=== PATIENT | male | born 1935 | race Two or more races ===

== ENCOUNTER 2018-07-14 15:58 | Inpatient (IN) | payer MEDICARE, MEDICAID ==
[~2018-07-14] VITALS: Ht 190.5 cm; Wt 70.3 kg
--- NOTE | 2018-07-14 16:15 | NUR ---
GPS/RN PATIENT ADMITTED ON A 5150 HOLD UNDER THE CARE OF DR DYER AND DR SORENSON. BOTH DR'S NOTIFIED OF NEW ADMISSION. AWAITING CALL BACK FROM DR SORENSON TO RECONCILE MEDS. PER HOLD PATIENT WAS VOICING SI DUE TO HIS SOCIAL SECURITY CHECK BEING SHORT, AND NOT BEING ABLE TO PAY HIS RENT. UPON FACE FACE ASSESSMENT, PATIENT IS ALERT X 2-3, VERBALLY RESPONSIVE,UNKEMPT, AMBULATORY AND CONTINENT. PATIENT DENIES ANY SI/HI/AVH AT THIS TIME. PATIENT IS CALM, COOPERATIVE, WITHDRAWN WITH DEPRESSED MOOD. BELONGINGS COLLECTED MEDICATIONS RECONCILED BY MED RECON NURSE. PATIENT HAS UPPER AND LOWER DENTURES WHICH ARE IN HIS MOUTH. WILL CONTINUE TO MONITOR Q 15 MIN FOR SAFETY AND BEHAVIOR.
[2018-07-14] MEDS ORDERED: MAGNESIUM HYDROXIDE 30 ML UDC PO PRN (16:30)
[2018-07-14] MEDS ORDERED: ACETAMINOPHEN 325 MG TABLET PO PRN (16:30)
[2018-07-14] MEDS ORDERED: LORAZEPAM 0.5 MG TABLET PO PRN (16:30)
[2018-07-14] MEDS ORDERED: TIMO5DRO31 EACHEYE (16:34)
[2018-07-14] MEDS: MAG HYDROX/AL HYDROX/SIMETH 30 ML UDC PO PRN ×2 (16:58→21:25)
[2018-07-14 17:09] VITALS: BP 153/64
[2018-07-14 20:08] VITALS: BP 119/62
--- NOTE | 2018-07-14 22:00 | NUR ---
GPS RN: Found in the room vomiting clear liquid. Complained of stomach acid. PRN Maalox administered. Patient was in bed resting upon reassessment 30 min after Addendum: 07/15/18 at 0615 by KEVEN LEGRE RN Amended: Links added.
[2018-07-15 06:44] LABS: ALANINE AMINOTRANSFERASE 12 U/L (12-78); ALBUMIN 3.1 g/dL (3.4-5.0); ALKALINE PHOSPHATASE 60 U/L (46-116); ASPARTATE AMINOTRANSFERASE 13 U/L (15-37); BILIRUBIN,TOTAL 0.2 mg/dL (0.2-1.0); CALCIUM, SERUM 8.6 mg/dL (8.5-10.1); CARBON DIOXIDE 29 mmol/L (21-32); CHLORIDE 105 mmol/L (98-107); CREATININE 1.4 mg/dL (0.6-1.3); GLUCOSE 82 mg/dL (74-106); POTASSIUM 4.4 mmol/L (3.5-5.1); SODIUM SERUM 139 mmol/L (136-145); TOTAL PROTEIN, SERUM 6.2 g/dL (6.4-8.2); UREA NITROGEN, BLOOD 23 mg/dL (7-18)
[2018-07-15 06:47] LABS: CHOLESTEROL 189 mg/dL (<200); HDL CHOLESTEROL 49 mg/dL (40-60); LDL 128 mg/dL (0-99); TRIGLYCERIDES 95 mg/dL (30-150)
[2018-07-15 08:00] VITALS: BP 150/61
[2018-07-15] MEDS: ESCITALOPRAM OXALATE (10 MG) 10 MG TABLET PO SCH (10:44)
--- NOTE | 2018-07-15 12:20 | NUR ---
INITIAL DISCHARGE PLAN: Patient wishes to be discharged back to room and board to [address] [place] [address], [id number] . SW will help form a safe and proper discharge in collaboration with pt and MD.
[2018-07-15 16:00] VITALS: BP 127/71
[2018-07-15] MEDS: MAG HYDROX/AL HYDROX/SIMETH 30 ML UDC PO PRN (19:51)
--- NOTE | 2018-07-15 19:52 | NUR ---
C/O GASTRIC UPSET, MAALOX 30 ML PO GIVEN.
[2018-07-15 20:00] VITALS: BP 156/69
[2018-07-15] MEDS: TEMAZEPAM 7.5 MG CAPSULE PO PRN (21:33)
[2018-07-16 08:00] VITALS: BP 139/62
[2018-07-16] MEDS: ESCITALOPRAM OXALATE (10 MG) 10 MG TABLET PO SCH (08:24)
[2018-07-16 16:00] VITALS: BP 150/62
[2018-07-16] MEDS: MAG HYDROX/AL HYDROX/SIMETH 30 ML UDC PO PRN (19:47)
--- NOTE | 2018-07-16 19:48 | NUR ---
C/O GASTRIC UPSET, MAALOX 30 ML PO GIVEN.
[2018-07-16 20:00] VITALS: BP 139/69
[2018-07-16] MEDS: TEMAZEPAM 7.5 MG CAPSULE PO PRN (20:35)
--- NOTE | 2018-07-16 20:35 | NUR ---
TEMAZEPAM 7.5 MG CAP 1 PO GIVEN FOR SLEEP.
[2018-07-17 08:00] VITALS: BP 113/60
[2018-07-17] MEDS: ESCITALOPRAM OXALATE (10 MG) 10 MG TABLET PO SCH (08:57)
[2018-07-17] MEDS: MAG HYDROX/AL HYDROX/SIMETH 30 ML UDC PO PRN ×2 (15:07→20:33)
[2018-07-17 16:00] VITALS: BP 144/81
[2018-07-17 20:00] VITALS: BP 139/67
[2018-07-17] MEDS: TEMAZEPAM 7.5 MG CAPSULE PO PRN (20:32)
--- NOTE | 2018-07-17 20:33 | NUR ---
MAALOX 30 ML PO GIVEN FOR GASTRIC UPSET
--- NOTE | 2018-07-17 20:34 | NUR ---
TEMAZEPA7.5 MG CAP PO GIVEN FOR SLEEP.
[2018-07-18] MEDS: ESCITALOPRAM OXALATE (10 MG) 10 MG TABLET PO SCH (08:05)
[2018-07-18 09:25] VITALS: BP 136/73
--- NOTE | 2018-07-18 10:43 | NUR ---
GPS/RN PATIENT REFUSED SHOWER, ENCOURAGED X 3, EXPLAINED RISKS AND BENEFITS, WILL CONTINUE TO ENCOURAGE.
[2018-07-18] MEDS: MAG HYDROX/AL HYDROX/SIMETH 30 ML UDC PO PRN ×2 (12:52→19:57)
--- NOTE | 2018-07-18 16:06 | NUR ---
Pts brett Rawls, came to visit pt to collect rent money. Brett was requesting for pt to write her a check. SOO informed brett that due to pts current legal status on psych unit pt was unable to sign any legal monetary document. SOO explained to both pt and lennylorviji that signing legal documents including a blank check to brett was against hospital policy. Brett and pt both understood. Brett, informed SW that pt is able to return home and she would arrange payment after pt is discharged.
[2018-07-18 16:41] VITALS: BP 161/72
[2018-07-18 20:40] VITALS: BP 99/60
[2018-07-19] MEDS: TEMAZEPAM 7.5 MG CAPSULE PO PRN (00:38)
[2018-07-19 08:00] VITALS: BP 113/52
[2018-07-19] MEDS: ESCITALOPRAM OXALATE (10 MG) 10 MG TABLET PO SCH (08:32)
[2018-07-19] MEDS: MAG HYDROX/AL HYDROX/SIMETH 30 ML UDC PO PRN ×2 (11:29→19:36)
[2018-07-19 16:05] VITALS: BP 141/66
--- NOTE | 2018-07-19 19:30 | NUR ---
GPS RN NOTE, RECEIVED PATIENT AWAKE AND IN BED, NO S/S OR COMPLAINTS OF PAIN AT THIS TIME. PATIENT IS DISPLAYING NO S/S OF APPARENT DISTRESS AT THIS TIME. PATIENT BREATHING IS UNLABORED WITH EQUAL RISE AND FALL OF THE CHEST. PATIENT IS ALERT AND ORIENTED X 3 ON ROOM AIR WITH A SPO2 OF 96%. PATIENT IS MED COMPLIANT, CALM, COOPERATIVE, DISORGANIZED, CONFUSED AT TIMES, AND NEEDS REDIRECTION. PATIENT DENIES SUICIDE IDEATIONS AND HOMICIDAL IDEATIONS AT THIS TIME. PATIENT ASSISTED WITH TURNING AND REPOSITIONING Q 2HRS AND PRN FOR COMFORT AND CIRCULATION. PATIENT HAS NO NEEDS AT THIS TIME. PATIENT EDUCATED ON THE USE OF THE CALL CARRILLO. PATIENT BED SIDE RAILS UP X 2 FOR SAFETY, BED IS LOCKED, LOW, AND I WILL CONTINUE TO MONITOR AND MAINTAIN SAFETY Q15 MIN WITH THE HELP OF STAFF.
--- NOTE | 2018-07-19 19:38 | NUR ---
GPS RN NOTE, PATIENT HAS A COMPLAINT OF INDIGESTION AND IS REQUESTING MAALOX AT THIS TIME. PATIENT VITAL SIGNS ARE STABLE. GAVE MAALOX 30 ML PO Q4HR PRN ORDERED. WILL REASSESS FOR INDIGESTION AND I WILL CONTINUE TO MONITOR THIS PATIENT.
[2018-07-19 20:09] VITALS: BP 154/72
[2018-07-20 08:00] VITALS: BP 101/55
[2018-07-20] MEDS: ESCITALOPRAM OXALATE (10 MG) 10 MG TABLET PO SCH (08:28)
[2018-07-20] MEDS: MAG HYDROX/AL HYDROX/SIMETH 30 ML UDC PO PRN ×2 (10:32→19:22)
[2018-07-20 16:00] VITALS: BP 136/61
[2018-07-20 19:53] VITALS: BP 110/74
[2018-07-20] MEDS: TEMAZEPAM 7.5 MG CAPSULE PO PRN (21:46)
[2018-07-21 08:00] VITALS: BP 110/52
[2018-07-21] MEDS: ESCITALOPRAM OXALATE (10 MG) 10 MG TABLET PO SCH (08:51)
--- NOTE | 2018-07-21 09:32 | NUR ---
SOO faxed continuing care packet to [facility] [address] [address] for an after care referral.
--- NOTE | 2018-07-21 09:39 | NUR ---
DR. DYER GAVE AN ORDER TO D/C HOLD AND D/C TODAY AND TO FOLLOW UP WITH PSYCH AND MEDICAL DOCTORS.
[2018-07-21] MEDS: MAG HYDROX/AL HYDROX/SIMETH 30 ML UDC PO PRN (10:53)
--- NOTE | 2018-07-21 10:53 | NUR ---
GPS/RN-NOTES PATIENT REQUESTING MAALOX FOR INDIGESTION. MAALOX 30ML. PRN ORDER. WILL CONT. MONITORING.
--- NOTE | 2018-07-21 12:15 | NUR ---
GPS/RN-NOTES PATIENT DISCHARGE TO HOME TODAY. DR. DUPONT AND NIKKI SCOTT AWARE AND AGREED WITH ORDERS.PATIENT DID NOT VERBALIZE SI/HI,DENIES VISUAL/AUDITORY HALLUCINATIONS AT THE TIME OF DISCHARGE. ALL DISCHARGE MEDICATIONS WAS REVIEWED WITH PATIENT WITH UNDERSTANDING. RX WAS GIVEN TO THE PATIENT AND ADVISED PATIENT TO F/U WITH PRIMARY MD AND PSYCHIATRIST IN A WEEK.PATIENT LEFT THE UNIT IN STABLE CONDITION ALERT ORIENTED X3,AMBULATORY WITH STEADY GAIT. PATIENT WAS PUBLIC WORKS DIRECTOR BY DAVE PINA ( [employer]DEPENDANT LIVING STAFF) VIA PRIVATE CAR. HE WAS ASSISTED BY ACTIVITY STAFF IN THE LOBBY FOR SAFETY. PATIENT LEFT THE UNIT WITH ALL HIS BELONGINGS.
--- NOTE | 2018-07-21 14:13 | NUR ---
DISCHARGE NOTE: Pt discharged home at 11:45am via private vehicle to [address] [place] [address], . Pts landlord Samantha [phone] picking pt up and transported him home. Pts mood was euphoric with congruent affect. Pt denied visual/auditory hallucinations and denied suicidal/homicidal ideations. Pt was referred to [facility] [address] and continuing packet that sent for an after care appointment. Pt was also referred to [facility] Address: [address] [place] . The multidisciplinary exit care form was done, printed, signed, and given to the patient.
== END 2018-07-21 12:15 | disposition home or self-care (01) | DRG 885 ==
LOC: GPS 15:58
PROVIDERS: ADMIT Psychiatry & Neurology Psychiatry
DX: F32.2 Major depressive disorder, single episode, severe without psychotic features (principal); N18.9 Chronic kidney disease, unspecified; N17.9 Acute kidney failure, unspecified; E44.1 Mild protein-calorie malnutrition; R45.851 Suicidal ideations; F29 Unspecified psychosis not due to a substance or known physiological condition; F41.9 Anxiety disorder, unspecified; F43.9 Reaction to severe stress, unspecified; I10 Essential (primary) hypertension; H26.9 Unspecified cataract
CPT/HCPCS: 36415; 80053-TC; 80061-TC